=== PATIENT | male | born 1930 | race Caucasian/White ===

== ENCOUNTER 2016-10-02 21:35 | Emergency (ER) | payer MEDICARE, OTHER ==
[2016-10-02 20:59] LABS: BASOPHILS 0.3 %; BASOPHILS ABSOLUTE 0.02 10/3/uL (0.0-0.16); EOSINOPHILS 3.2 %; EOSINOPHILS ABSOLUTE 0.21 10/3/uL (0.0-0.53); HEMATOCRIT 38.1 % (40.0-51.0); HEMOGLOBIN 12.1 g/dL (13.6-17.8); LYMPHOCYTES 15.4 %; LYMPHOCYTES ABSOLUTE 1.01 10/3/uL (0.67-4.30); MEAN CORPUS HGB CONC 31.8 g/dL (32.0-36.0); MEAN CORPUSCULAR HEMOGLOB 28.6 pg (26.0-34.0); MEAN CORPUSCULAR VOLUME 90.1 fL (80-100); MEAN PLATELET VOLUME 10.6 fL (9.2-13.0); MONOCYTES 7.5 %; MONOCYTES ABSOLUTE 0.49 10/3/uL (0.21-1.20); NEUTROPHILS 73.6 %; NEUTROPHILS ABSOLUTE 4.84 10/3/uL (2.02-8.40); PLATELET COUNT 165 10/3/uL (150-400); RBC DISTRIBUTION WIDTH 16.6 % (12.0-16.0); RED CELL COUNT 4.23 10/6/uL (4.7-6.1); WHITE BLOOD CELLS 6.6 10/3/uL (4.5-10.5)
[2016-10-02 21:02] LABS: MANUAL DIFF NO %
[2016-10-02 21:12] LABS: INTERNATIONAL NORMAL RATI 2.8 UNITS (-); PROTIME (NOT ORD) 28.9 SEC (12.0-14.5)
[2016-10-02 21:15] LABS: BUN (BLOOD UREA NITROGEN) 23 MG/DL (6-23); CALCIUM, SERUM 8.4 MG/DL (8.5-10.4); CHEST PAIN PROFILE TAT 0 Hrs 22 Mins; CHLORIDE, SERUM 109 MMOL/L (96-112); CO2 (CARBON DIOXIDE) 30 MMOL/L (24-34); CREATININE 1.31 MG/DL (0.70-1.30); GFR AFRICAN AMERICAN 56 ML/MIN (>=60); GFR NON AFRICAN AMERICAN 49 ML/MIN (>=60); GLUCOSE, SERUM 126 MG/DL (60-99); LACTATE 1.2 MMOL/L (0.3-2.4); POTASSIUM, SERUM 3.3 MMOL/L (3.5-5.3); SODIUM, SERUM 147 MMOL/L (135-148); TROPONIN I 0.02 NG/ML (<0.05)
[~2016-10-02 21:35] MED LIST: 8 HOUR650 MG PO; ALTA2.5 PO; ALTA5 PO; AMARYL4 PO; AMITIZA24 PO; ASAB PO; BISR PR; BUM1 PO; BUM2 PO; C1 PO; C25 PO; C5 PO; CARDCD180 PO; CARTIA XT180 MG/24 PO; CEFT5 PO; CIP2 PO; CLARIT10 PO; COUMADIN3 MG PO; COUMADIN6 MG PO; DEMA100 PO; DEMA20 PO; DILT-XR180 MG PO; DITRO5 PO; EZFE 200200 MG PO; FLONASE NAS; HUMALOG SC; IVVIBRA PO; JANTOVEN3 MG; JANUVIA100 MG PO; JANUVIA25 MG PO; JANUVIA50 PO; K500 PO; KDUR20 PO; KLOR-CON M2020 MEQ PO; L20 PO; L40 PO; L80 PO; LEVEMIR PO; LEVEMIR SC; LOP50 PO; MACROBID PO; MAGOX4 PO; METOPROLOL SUCC ER PO; MICRO-K10 MEQ PO; MINOCIN100 PO; MIRALAXPKT PO; MULTIVIT/MIN PO; MULTIVITAMI1 PO; OSTEO BI-FLX PO; OXYBUTYNIN ER PO; PRAVAC PO; PROAIR HFA INH; SENTAB PO; SPIRO25 PO; T PO; TOPXL25 PO; TOPXL50 PO; VENTOLIN HFA INH; VITAMIN D2000 UNIT PO; WARFARIN PO; WELCHOL 625 MG625 MG OR; WELCHOL 625 MG625 MG PO; WELCHOL625 MG OR; XENADERM T; ZAROX2.5B PO; ZOCOR20 PO; ZOFRAN4 PO; [UNRECOGNIZED DRUG - OTHER] PO; [UNRECOGNIZED DRUG - REMARK]; [UNRECOGNIZED DRUG - REMARK] PO
[2016-10-02 21:57] LABS: PROCALCITONIN <0.05 ng/mL (<0.5)
== END 2016-10-03 00:40 | disposition home or self-care (01) ==
LOC: ER 21:35
PROVIDERS: Nurse Practitioner
DX: L03.116 Cellulitis of left lower limb (principal); L03.115 Cellulitis of right lower limb; I89.0 Lymphedema, not elsewhere classified; E87.6 Hypokalemia; I11.0 Hypertensive heart disease with heart failure; I50.9 Heart failure, unspecified; I25.10 Atherosclerotic heart disease of native coronary artery without angina pectoris; I48.91 Unspecified atrial fibrillation; E11.9 Type 2 diabetes mellitus without complications; Z96.652 Presence of left artificial knee joint; Z79.4 Long term (current) use of insulin; Z79.82 Long term (current) use of aspirin; Z79.01 Long term (current) use of anticoagulants; Z79.899 Other long term (current) drug therapy
CPT/HCPCS: 71010; 80048; 83605; 83735; 83880; 84145; 84484; 85025; 85610; 85730; 87040; 96374; 99285; A9270-GY; J0690